=== PATIENT | male | born 1970 | race Caucasian/White ===

== ENCOUNTER 2016-12-28 17:10 | Emergency (ER) | payer MEDICARE ==
[~2016-12-28] VITALS: Ht 177.8 cm; Wt 95.2 kg
[~2016-12-28 17:10] MED LIST: DEPAKOTE500 MG PO; IBUPROFEN400 MG PO; NORCO 5-325 TA1 EACH PO; TYLENOL EXTRA500 M1 PO
== END 2016-12-28 17:25 | disposition home or self-care (01) ==
LOC: ED 17:10
DX: K08.89 Other specified disorders of teeth and supporting structures (principal); Z00.8 Encounter for other general examination

== ENCOUNTER 2016-12-28 17:32 | Emergency (ER) | payer MEDICARE | END 2016-12-28 17:52 | disposition left against medical advice (07) | LOC: ED 17:32 | DX: K08.89 Other specified disorders of teeth and supporting structures (principal); Z53.21 Procedure and treatment not carried out due to patient leaving prior to being seen by health care provider ==